=== PATIENT | male | born 1975 | race Caucasian/White ===

== ENCOUNTER → 2018-10-24 | Outpatient (CLI) | payer BC ==
--- NOTE | 2018-10-24 16:54 | RADIOLOGY IMAGING REPORT ---
FACILITY: [facility] PATIENT NAME: Israel Dos Santos : 1975 MR: [id number] V: [id number] EXAM DATE: ORDERING PHYSICIAN: MARILU RIZO TECHNOLOGIST: Location: [facility] - [place] Patient: Israel Dos Santos : 1975 Visit/Account:[id number] Date of Sevice: 10/24/2018 Exam type: CHEST PA LAT History: Cough x2 months, unexplained weight loss Comparison: None. Findings: The lungs are free of acute effusions, infiltrates or edema. Cardiac silhouette is normal in size. The trachea is in midline. Visualized bones are unremarkable for age IMPRESSION: 1. No acute cardiopulmonary process is seen Report Dictated By: Melissa Stephens MD at 10/24/2018 4:48 PM Report E-Signed By: Melissa Stephens MD at 10/24/2018 4:49 PM WSN:[email or web address]
== END ==
LOC: RAD 15:51
PROVIDERS: ATTEND Nurse Practitioner Psychiatric/Mental Health
DX: R05 Cough (principal)
CPT/HCPCS: 71046